=== PATIENT | male | born 1955 | race Caucasian/White ===

== ENCOUNTER → 2017-12-06 07:51 | Outpatient (CLI) | payer OTHER, SELFPAY ==
[2017-12-06 09:29] LABS: AST(SGOT) 17 U/L (15-37); Alanine Aminotransfer ALT/SGPT 29 U/L (16-61); Albumin, Serum 3.9 g/dL (3.2-5.0); Alkaline Phosphatase 69 U/L (45-117); Anion Gap 9 (5-15); BUN 14 mg/dL (7-18); BUN/Creat Ratio 16.2 RATIO (10-20); Calcium,Total 8.9 mg/dL (8.5-10.1); Chloride 103 mmol/L (98-107); Cholesterol 205 mg/dL (200); Creatinine, Serum 0.87 mg/dL (0.70-1.30); EST Glomerular Filtration Rate 95 mL/min (>60); Est Glom Filt Rate - Afr Amer 114 mL/min (>60); Globulin 3.8 g/dL (2.2-4.2); Glucose 87 mg/dL (74-106); High Density Lipoprotein 54 mg/dL; Protein, Total 7.7 g/dL (6.4-8.2); Sodium Level 140 mmol/L (136-145); Triglycerides 90 mg/dL; Very Low Density Lipoprotein 18 mg/dL (5-40)
== END ==
PROVIDERS: Family Provider Family Medicine; PCP Family Medicine; Visit Provider Family Medicine
DX: E78.5 Hyperlipidemia, unspecified (principal)
CPT/HCPCS: 36415; 80053; 80061

== ENCOUNTER → 2018-02-06 10:38 | Outpatient (CLI) | payer OTHER, SELFPAY ==
[2018-02-06 10:47] LABS: Bacteria 0 SEEN /hpf (None Seen); Mucous, Urine 0 SEEN /hpf (<or=2+); Red Blood Cells-Urine 0 SEEN /hpf (0-5); Squamous Epithelial Cells - UA 0 SEEN /hpf (0-5); White Blood Cells 0 SEEN /hpf (0-5)
--- NOTE | 2018-02-06 11:01 | EKG12_ITS ---
Test Reason : CP Blood Pressure : / mmHG Vent. Rate : 070 BPM Atrial Rate : 070 BPM P-R Int : 186 ms QRS Dur : 146 ms QT Int : 438 ms P-R-T Axes : -02 -52 -07 degrees QTc Int : 473 ms Sinus rhythm with occasional Premature ventricular complexes Left axis deviation Right bundle branch block Abnormal ECG Confirmed by TISH VALLES, CHAPO ([id number]), website/blog editor JORDON LIVINGSTON ([id number]) on 02/13/2018 1:09:14 PM Referred By: Marvin Mera Confirmed By:CHAPO WINSTON MD
[2018-02-06 11:29] LABS: Absolute Lymphocyte Count 0.66 X10^3/ul (0.83-4.51); Absolute Neutrophil Count 3.6 X10^3/uL (2.0-7.7); Basophil# 0.01 X10^3/uL; Basophil% 0.2 % (0-1); Eosinophil# 0.05 X10^3/uL; Eosinophils% 1.1 % (0-5); Hematocrit 42.4 % (40-54); Hemoglobin 14.5 g/dl (13.0-16.5); Lymphocyte # 0.66 X10^3/ul (4.0); Mean Corp Hgb Conc 34.2 g/gl (32-36); Mean Corpuscular Volume 87.8 fL (80-94); Mean Platelet Vol. 10.8 fl (6.2-12.0); Monocyte# 0.35 X10^3/uL; Monocyte% 7.4 % (0-10); Neutrophil # 3.63 X10^3/uL (2.7-7.7); Neutrophil % 76.9 % (47-70); Platelet Count 173 K/mm3 (150-450); RBC Distribution Width CV 12.9 % (11.6-14.6); RBC Distribution Width SD 41.1 fl (35.1-43.9); Red Blood Count 4.83 M/mm3 (4.6-6.2); White Blood Count 4.7 K/mm3 (4.4-11.0)
[2018-02-06 11:30] LABS: Color, Urine Yellow (Yellow); Glucose, Dipstick Normal (Normal); Ketone-Dipstick Negative (Negative); Leukocyte Esterase-Dipstick 100 /ul (Negative); Nitrite-Dipstick Negative (Negative); Occult Blood-Urine Negative /ul (Negative); POSITIVE COUNT NO; POSITIVE DIFFERENTIAL NO; POSITIVE MORPHOLOGY NO; Protein-Dipstick Negative (Negative); Urine Bilirubin Dipstick Negative (Negative); Urine Clarity Clear (Clear); Urine Urobilinogen Normal (Normal)
[2018-02-06 12:39] LABS: PSA,Total - Annual Screen 3.11 ng/mL (0.00-4.00)
[2018-02-06 13:21] LABS: Bacteria 0 SEEN /hpf (None Seen); Mucous, Urine 0 SEEN /hpf (<or=2+); Red Blood Cells-Urine 0 SEEN /hpf (0-5); Squamous Epithelial Cells - UA 0 SEEN /hpf (0-5); White Blood Cells 0 SEEN /hpf (0-5)
[2018-02-06 13:25] LABS: Color, Urine Yellow (Yellow); Glucose, Dipstick Normal (Normal); Ketone-Dipstick Negative (Negative); Leukocyte Esterase-Dipstick 25 /ul (Negative); Nitrite-Dipstick Negative (Negative); Occult Blood-Urine Negative /ul (Negative); Protein-Dipstick Negative (Negative); Specific Gravity, Urine 1.015 (1.002-1.030); Urine Bilirubin Dipstick Negative (Negative); Urine Clarity Clear (Clear); Urine Urobilinogen Normal (Normal)
[2018-02-06 13:31] LABS: Amorphous Sediment 1+
== END ==
PROVIDERS: Family Provider Family Medicine; PCP Family Medicine; Referring Provider Nurse Practitioner Family; Visit Provider Nurse Practitioner Family
DX: N40.0 Benign prostatic hyperplasia without lower urinary tract symptoms (principal); R07.9 Chest pain, unspecified; R63.4 Abnormal weight loss; Z12.5 Encounter for screening for malignant neoplasm of prostate
CPT/HCPCS: 36415; 81001; 84153; 85025; 93005; G0103

== ENCOUNTER → 2018-05-10 12:56 | Outpatient (CLI) | payer OTHER, SELFPAY ==
[2018-04-15 13:09] VITALS: BMI 24.7
--- NOTE | 2018-05-10 13:00 | CT_ITS ---
STUDY: CT ABDOMEN AND PELVIS WITH AND WITHOUT CONTRAST REASON FOR EXAM: Male, 63 years old. Hematuria RADIATION DOSAGE (If Supplied By Facility): CTDIvol = ( 13.8 ) mGy, DLP = ( 1842.0 ) mGycm TECHNIQUE: Transaxial images were obtained from the dome of the diaphragm to the symphysis pubis without oral contrast. 100 ml of Isovue 300 contrast was administered. Sagittal and coronal images were reconstructed. Individualized dose optimization techniques were used for this CT. COMPARISON: None. FINDINGS: Mild atelectasis in the lung bases. The visualized portions of the heart are within normal limits. Normal liver. There is a solitary gallstone. Normal spleen. Normal pancreas. Normal bilateral adrenal glands. There are bilateral nephroliths identified on noncontrast imaging, measuring 4.4 mm on the right and 5.1 mm on the left (largest calculi). No ureteral calculi are seen. There is only limited filling of the ureters on delayed imaging but no obvious ureteral mass or obstruction identified. Normal visualized stomach. Normal small intestine. Colonic fecal residue throughout the colon but no colon wall thickening. There is non-visualization of the appendix. There is diffuse atherosclerotic calcification of the abdominal aorta, without a demonstrated aneurysm. Normal inferior vena cava. Normal retroperitoneum. Normal urinary bladder. There is enlargement of the prostate gland. Prostate calcifications are noted. Normal abdominal wall. Mild degenerative changes of the lumbar spine. CT/CT Abd/Pelvis W/WO Contrast IMPRESSION: 1. No solid renal masses. No hydronephrosis or ureter calculi. 2. Nonobstructing bilateral nephrolithiasis. 3. Prostatomegaly with prostate calcifications. 4. Gallstone. 5. Colonic fecal residue. 6. Mild degenerative changes of the lumbosacral spine. Electronically Signed: Luis Eduardo Sewell MD at 9:40 EST , Service support ,
== END ==
PROVIDERS: Family Provider Family Medicine; PCP Family Medicine; Referring Provider Urology; Visit Provider Urology
DX: R31.0 Gross hematuria (principal)
CPT/HCPCS: 74178; Q9967

== ENCOUNTER → 2018-11-02 08:43 | Outpatient (CLI) | payer OTHER, SELFPAY ==
[2018-10-23 16:30] VITALS: BMI 24.7
--- NOTE | 2018-11-02 08:45 | US_ITS ---
STUDY: ABDOMINAL ULTRASOUND - Left UPPER QUADRANT REASON FOR VISIT: Male, 63 years old. Left-sided abdominal pain TECHNIQUE: Ultrasound evaluation of the left upper quadrant was performed with real-time and static polanco-scale imaging. TECHNICAL QUALITY: Adequate. COMPARISON: None. FINDINGS: Spleen: The spleen measures 12.4 x 4.8 x 3.6 cm. There is normal echogenicity of the spleen. No perisplenic fluid collection There is no demonstrated mass lesion. Left Kidney: Normal size of the left kidney. The left kidney measures 10.9 x 4.9 x 4.7 cm. Normal renal cortex. The left cortex measures 1.9 cm. There is no demonstrated renal mass or cyst. There is no left hydronephrosis. There are echogenic shadowing calculi of the left kidney measuring up to 1.5 cm (size may be overestimated on ultrasound) as seen on prior CT of 05/10/2018. US/Spleen IMPRESSION: 1. Normal sonographic appearance of the spleen. 2. Nonobstructing left nephrolithiasis. Electronically Signed: Luis Eduardo Sewell MD at 14:56 EDT , Service support ,
== END ==
PROVIDERS: Family Provider Family Medicine; PCP Family Medicine; Referring Provider Family Medicine; Visit Provider Family Medicine
DX: R10.9 Unspecified abdominal pain (principal)
CPT/HCPCS: 76705

== ENCOUNTER 2018-11-18 15:52 | Outpatient (RCR) | payer OTHER, SELFPAY ==
[2018-10-23 16:30] VITALS: BMI 24.7
--- NOTE | 2018-11-18 17:44 | HP.PTEVAL ---
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 Date of Evaluation: 11/18/18 Physical Therapist: Louise Tripp PT, Cert MDT - Visit Plan Frequency: 1x/Week Duration: 1 Week Plan: D/C DUE TO PATIENT NOT WANTING TO PURSUE THERAPY FOR HIS BACK AT THIS TIME. - Subjective Findings: Work/Leisure: RETIRED MAY 2018. Disability: [employer]IN[employer] D[employer]. Present symptoms: LEFT QUADRANT ABDOMINAL PAIN, LOW BACK PAIN. NO LE PAIN, NUMBNESS OR TINGLING. Present since: ABOUT 5 MONTHS AGO ABDOMINAL PAIN STARTED AND CHRONIC LBP. LOW BACK ALSO SEEMED TO FLARE UP AND NOT EASE UP ABOUT 5 MONTHS. Pain Scale: WORST 6/10, LEAST 0/10 (ABDOMEN). WORST 8/10, LEAST 2/10 (LBP). Currently: 0/10 BUT TENDER. HAS IMPROVED. LBP - 2/10. Commenced as a result of: NO APPARENT REASON (ABDOMEN AND LBP). Symptoms at onset: LEFT ABDOMINAL AREA ABOUT 5 MONTHS AGO AND ALL THE WAY ACROSS THE BACK. Worse: INCREASED PAIN/ACHING IN LEFT ABDOMINAL AREA AFTER EATING. LEANING OVER WORKING ON THE FLOWER BED AND ANYTHING LEANING MAKES BACK PAIN WORSE. Better: JUST TAKES TIME. MAYBE WARM COMPRESS. LYING DOWN EASES LBP. Disturbed sleep: NO. Previous history/Previous treatment: CHIROPRACTOR OFF AND ON FOR YEARS. Coughing/sneezing/straining: NEGATIVE. Gait: UNCHANGED IN LAST 5 MONTHS OR SO. Difficulty initiating urinatin: NO. Accidents: NO. Unexplained weight loss: NO. Imaging: US OF ABDOMEN ABOUT 4 WEEKS AGO - NEGATIVE. PMH: PARKINSON'S DZ DX'D IN JAN 2015. Recent major surgery: NO. PLOF (Prior Level of Function): UNCHANGED. - Objective Sitting/Standing Posture: POOR. INCREASED TRUNK FLEXION, INCREASED KYPHOSIS, FORWARD HEAD AND ROUNDED SHOULDERS. Lordosis: REDUCED. Lateral shift: NO. Relevant shift: N/A. Active Correction of posture: NE. Other Observations: INDEP GAIT INTO PT WITH DECREASED CADANCE, INCREASED TRUNK FLEXION AND DECREASED JAY STRIDE LENGTH BUT NO LOB. Motor deficit: JAY LE STRENGTH GROSSLY 4-5/5 WITH MMT'ING AND TESING DOES NOT INCREASE C/O BACK OR ABDOMINAL PAIN. Sensory deficit: NO. ROM deficit: TIGHT JAY HIP FLEXORS, HS'S AND GASTROC SOLEUS COMPLEX'S. Reflexes: NT. Dural Signs: NEGATIVE. Lumbar mvmt loss: flex - MOD. ext - ALESHA. R SG - ALESHA. L SG - ALESHA. PATIENT DENIES INCREASED PAIN (STRETCHING WITH JAY SB ON IPSILATERAL SIDE ONLY) IN BACK OR ABDOMEN WITH TESTING. Core strength: POOR. Palpation: TENDERNESS WITH PALPATION OF THE LUMBAR SPIINE REGION ONLY. PALPATION OF LUMBAR SPINE DOES NOT PRODUCE ABDOMINAL PAIN. OTHER: NO TESTING TODAY PRODUCED ABDOMINAL PAIN. PATIENT DOES NOT WISH TO HAVE THERAPY FOR HIS LOW BACK AT THIS TIME. HE REPORTS HE HAS BEEN MANAGING HIS LOW BACK PAIN FOR A LONG TIME WITH HIS CHIROPRACTOR AND HAS ONLY HAD A LITTLE BIT OF INCREASE IN PAIN RECENTLY. HIS MAIN CONCERN IS HIS ABDOMINAL PAIN. HE PLANS TO PURSUE THIS FURTHER WITH HIS FAMILY PHYSICIAN AT THIS TIME. - Goals Goal 1:: COMPLETION OF INITIAL EVALUATION Goal Time Frame: ONE TIME CONSULT - Rehabilitation Potential Rehabilitation Potential: Fair - Anticipated Interventions Thank you for the opportunity to evaluate your patient. For Medicare and Medicare HMO plans, please review the plan of care and approve it. It will need to be FAXED BACK to us at [phone] for Medicare purposes. For Medicare only, by signing this I certify the plan of care. Please let me know if there are questions or concerns regarding this plan of care. Physician Signature: Date:
--- NOTE | 2018-11-18 17:45 | HP.PT.NRP ---
HP - Discharge Summary (1) - Patient Information RENNY VALENCIA was seen in my office for initial evaluation on 11/18/18. The following Plan of Care was established for this patient: Initial Frequency: 1x/Week Initial Duration: 1 Week This patient was last seen in our office . Pertinent comments regarding their Physical therapy will appear below: ONE TIME CONSULT At this point I will be discontinuing this patient from physical therapy. I would be happy to see this patient again in the future if found appropriate by the physician. Thank you! Louise Tripp, PT, Cert MDT
== END 2018-11-18 19:00 | disposition home or self-care (01) ==
LOC: PT 15:52
PROVIDERS: Family Provider Family Medicine; PCP Family Medicine; Referring Provider Family Medicine; Visit Provider Family Medicine
DX: M99.03 Segmental and somatic dysfunction of lumbar region (principal)
CPT/HCPCS: 97162

== ENCOUNTER → 2018-12-10 | Outpatient (CLI) | payer OTHER, SELFPAY ==
[2018-12-10 08:59] VITALS: BMI 24.7
[2018-12-10 12:33] LABS: AST(SGOT) 12 U/L (15-37); Alanine Aminotransfer ALT/SGPT 27 U/L (16-61); Albumin, Serum 3.8 g/dL (3.2-5.0); Alkaline Phosphatase 68 U/L (45-117); Anion Gap 6 (5-15); BUN 12 mg/dL (7-18); Chloride 106 mmol/L (98-107); Cholesterol 225 mg/dL (200); Creatinine, Serum 0.92 mg/dL (0.70-1.30); EST Glomerular Filtration Rate 88 mL/min (>60); Est Glom Filt Rate - Afr Amer 106 mL/min (>60); Globulin 3.7 g/dL (2.2-4.2); Glucose 80 mg/dL (74-106); High Density Lipoprotein 59 mg/dL; Potassium 4.3 mmol/L (3.5-5.1); Protein, Total 7.5 g/dL (6.4-8.2); Sodium Level 141 mmol/L (136-145); Triglycerides 82 mg/dL; Very Low Density Lipoprotein 16 mg/dL (5-40)
== END | disposition home or self-care (01) ==
LOC: BIMLAB 09:50
PROVIDERS: Family Provider Family Medicine; PCP Family Medicine; Visit Provider Family Medicine
DX: E78.5 Hyperlipidemia, unspecified (principal)
CPT/HCPCS: 36415; 80053; 80061

== ENCOUNTER → 2019-12-23 | Outpatient (CLI) | payer MEDICARE, BC, SELFPAY ==
[2019-12-23 10:26] VITALS: BMI 24.7
[2019-12-23 12:38] LABS: Absolute Neutrophil Count 3.3 X10^3/uL (2.0-7.7); Basophil# 0.02 X10^3/uL; Basophil% 0.4 % (0-1); Eosinophil# 0.05 X10^3/uL; Eosinophils% 1.1 % (0-5); Hematocrit 41.5 % (40-54); Hemoglobin 14.1 g/dL (13.0-16.5); Lymphocyte % 13.5 % (19-41); Mean Corpuscular Hgb 30.3 pg (27.0-32.0); Mean Corpuscular Volume 89.1 fL (80-94); Mean Platelet Vol. 10.4 fl (6.2-12.0); NRBC Flagged by Analyzer 0 % (0-5); Neutrophil # 3.34 X10^3/uL (2.7-7.7); Neutrophil % 75.1 % (47-70); POSITIVE DIFFERENTIAL YES; Platelet Count 170 K/mm3 (150-450); RBC Distribution Width CV 12.3 % (11.6-14.6); RBC Distribution Width SD 39.7 fl (35.1-43.9); Red Blood Count 4.66 M/mm3 (4.6-6.2); White Blood Count 4.5 K/mm3 (4.4-11.0)
[2019-12-23 12:41] LABS: Anion Gap 3 (5-15); BUN 15 mg/dL (7-18); BUN/Creat Ratio 18.1 RATIO (10-20); Chloride 105 mmol/L (98-107); Creatinine, Serum 0.83 mg/dL (0.70-1.30); EST Glomerular Filtration Rate 99 mL/min (>60); Est Glom Filt Rate - Afr Amer 119 mL/min (>60); Glucose 97 mg/dL (74-106); Sodium Level 139 mmol/L (136-145)
[2019-12-23 13:02] LABS: Differential Indicated SCAN CRITERIA MET
[2019-12-23 13:14] LABS: Differential Comment SCANNED; Pathologist Review May foll
[2019-12-23 18:59] LABS: Xtra Tube EP Lab EXTRA TUBE
== END | disposition home or self-care (01) ==
LOC: BIMLAB 10:54
PROVIDERS: PCP Family Medicine; Visit Provider Family Medicine
DX: G20 Parkinson's disease (principal); Z87.19 Personal history of other diseases of the digestive system
CPT/HCPCS: 36415; 80048; 85025

== ENCOUNTER → 2020-12-28 10:39 | Outpatient (CLI) | payer MEDICARE, BC, SELFPAY ==
[2020-12-28 12:34] LABS: ALB/GLOB Ratio 0.9 RATIO (0.9-2.4); AST(SGOT) 11 U/L (15-37); Alanine Aminotransfer ALT/SGPT 12 U/L (16-61); Albumin, Serum 3.7 g/dL (3.2-5.0); Alkaline Phosphatase 69 U/L (45-117); Anion Gap 1 (5-15); BUN 11 mg/dL (7-18); BUN/Creat Ratio 13.3 RATIO (10-20); Calcium,Total 9.2 mg/dL (8.5-10.1); Chloride 104 mmol/L (98-107); Creatinine, Serum 0.83 mg/dL (0.70-1.30); EST Glomerular Filtration Rate 99 mL/min (>60); Est Glom Filt Rate - Afr Amer 119 mL/min (>60); Globulin 3.9 g/dL (2.2-4.2); Glucose 91 mg/dL (74-106); Potassium 4.5 mmol/L (3.5-5.1); Protein, Total 7.6 g/dL (6.4-8.2); Sodium Level 139 mmol/L (136-145)
[2020-12-29 08:54] LABS: LDL, Direct 120295 131 mg/dL (0-99)
== END ==
PROVIDERS: PCP Family Medicine; Referring Provider Family Medicine; Visit Provider Family Medicine
DX: G20 Parkinson's disease (principal); E78.5 Hyperlipidemia, unspecified; N40.0 Benign prostatic hyperplasia without lower urinary tract symptoms
CPT/HCPCS: 36415; 80053; 83721; 84153

== ENCOUNTER → 2021-12-27 | Outpatient (CLI) | payer MEDICARE, BC, SELFPAY ==
[2021-12-27 12:27] LABS: AST(SGOT) 10 U/L (15-37); Alanine Aminotransfer ALT/SGPT 12 U/L (16-61); Albumin, Serum 3.8 g/dL (3.2-5.0); Alkaline Phosphatase 67 U/L (45-117); Anion Gap 5 (5-15); BUN 15 mg/dL (7-18); BUN/Creat Ratio 15.7 RATIO (10-20); Calcium,Total 9.6 mg/dL (8.5-10.1); Chloride 104 mmol/L (98-107); Cholesterol 225 mg/dL (200); Creatinine, Serum 0.96 mg/dL (0.70-1.30); EST Glomerular Filtration Rate 83 mL/min (>60); Est Glom Filt Rate - Afr Amer 101 mL/min (>60); Globulin 3.9 g/dL (2.2-4.2); Glucose 106 mg/dL (74-106); High Density Lipoprotein 61 mg/dL; Potassium 4.2 mmol/L (3.5-5.1); Protein, Total 7.7 g/dL (6.4-8.2); Sodium Level 139 mmol/L (136-145); Triglycerides 92 mg/dL; Very Low Density Lipoprotein 18 mg/dL (5-40)
== END | disposition home or self-care (01) ==
LOC: BIMLAB 10:21
PROVIDERS: PCP Family Medicine; Visit Provider Family Medicine
DX: G20 Parkinson's disease (principal); E78.5 Hyperlipidemia, unspecified
CPT/HCPCS: 36415; 80053; 80061

== ENCOUNTER → 2022-12-13 | Outpatient (CLI) | payer MEDICARE, BC, SELFPAY ==
[2022-12-13 12:29] LABS: Absolute Lymphocyte Count 0.67 X10^3/uL (0.83-4.51); Absolute Neutrophil Count 3.3 X10^3/uL (2.0-7.7); Basophil# 0.04 X10^3/uL; Basophil% 0.9 % (0-1); Eosinophil# 0.11 X10^3/uL; Eosinophils% 2.4 % (0-5); Hematocrit 36.9 % (40-54); Hemoglobin 12.1 g/dL (13.0-16.5); Lymphocyte # 0.67 X10^3/ul (0.83-4.51); Lymphocyte % 14.7 % (19-41); Mean Corp Hgb Conc 32.8 g/dL (32-36); Mean Corpuscular Hgb 29.1 pg (27.0-32.0); Mean Corpuscular Volume 88.7 fL (80-94); Mean Platelet Vol. 10.6 fl (6.2-12.0); Monocyte# 0.35 X10^3/uL; Monocyte% 7.7 % (0-10); NRBC Flagged by Analyzer 0 % (0-5); Neutrophil # 3.26 X10^3/uL (2.7-7.7); Neutrophil % 71.7 % (47-70); Platelet Count 230 K/mm3 (150-450); RBC Distribution Width CV 12.7 % (11.6-14.6); RBC Distribution Width SD 41.1 fl (35.1-43.9); Red Blood Count 4.16 M/mm3 (4.6-6.2); White Blood Count 4.6 K/mm3 (4.4-11.0)
[2022-12-13 12:53] LABS: ALB/GLOB Ratio 0.8 RATIO (0.9-2.4); AST(SGOT) 14 U/L (15-37); Alanine Aminotransfer ALT/SGPT 9 U/L (16-61); Albumin, Serum 3.3 g/dL (3.2-5.0); Alkaline Phosphatase 98 U/L (45-117); Amylase 40 U/L (25-115); Anion Gap 5 (5-15); BUN 27 mg/dL (7-18); Calcium,Total 8.7 mg/dL (8.5-10.1); Chloride 105 mmol/L (98-107); Cholesterol 201 mg/dL (200); Creatinine, Serum 1.42 mg/dL (0.70-1.30); EST Glomerular Filtration Rate 53 mL/min (>60); Est Glom Filt Rate - Afr Amer 64 mL/min (>60); Glucose 111 mg/dL (74-106); High Density Lipoprotein 42 mg/dL; Lipase 39 U/L (13-75); PSA,Total- Diagnostic 2.74 ng/mL (0.0-4.0); Protein, Total 7.3 g/dL (6.4-8.2); Sodium Level 138 mmol/L (136-145); Triglycerides 106 mg/dL; Very Low Density Lipoprotein 21 mg/dL (5-40)
== END | disposition home or self-care (01) ==
LOC: BIMLAB 09:23
PROVIDERS: PCP Family Medicine; Visit Provider Family Medicine
DX: R10.9 Unspecified abdominal pain (principal); E78.5 Hyperlipidemia, unspecified; N40.0 Benign prostatic hyperplasia without lower urinary tract symptoms; N41.0 Acute prostatitis
CPT/HCPCS: 36415; 80053; 80061; 82150; 83690; 84153; 85025

== ENCOUNTER 2023-02-20 07:37 | Day surgery (SDC) | payer MEDICARE, BC, SELFPAY ==
[2023-02-20 07:56] VITALS: BP 156/99; PULSE 80; RESP 16; TEMP 36.4; O2SAT 98; BMI 23.1
[2023-02-20] MEDS: Lactated Ringers 1,000 ML 15 ML IV (08:08)
--- NOTE | 2023-02-20 08:56 | PCM.HP.BLA ---
History and Physical Date of Admission: 02/20/23 Intake Vital Signs 12/14/2307:37 01/17/2314:55 Height 5 ft 11 in Weight: 170 lb 172 lb BMI 23.7 BP 116/74 130/66 H Blood Pressure Location Rt brachial Rt brachial Position Sitting Sitting Respiration 18 17 Pulse 59 L 52 L Pulse Source Monitor Monitor Temp 97.0 F L Temp Source Temporal Pulse Oximetry (%) 98 97 Oxygen Delivery Method room air room air Intake Visit Reasons: POSITIVE COLOGUARD Chief Complaint: positive cologuard Is patient in pain?: No Allergies sulfamethoxazole [From Bactrim] Allergy (Mild, Verified 01/17/23 14:56) Rashtrimethoprim [From Bactrim] Allergy (Mild, Verified 01/17/23 14:56) RashPenicillins Allergy (Verified 01/17/23 14:56) Rash Medications finasteride 5 mg tablet 5 mg PO DAILY 02/26/17 [History Confirmed 01/17/23] ascorbate calcium (vitamin C) 500 mg tablet 500 mg PO DAILY 12/23/19 [History Confirmed 01/17/23] cholecalciferol (vitamin D3) 25 mcg (1,000 unit) capsule 25 mcg PO DAILY 12/23/19 [History Confirmed 01/17/23] zinc 50 mg tablet 50 mg PO DAILY 12/28/20 [History Confirmed 01/17/23] duloxetine 60 mg capsule,delayed release See Rx Instructions .Route .COMPLEX #90 caps 12/27/21 [Rx Confirmed 01/17/23] carbidopa 25 mg-levodopa 100 mg tablet 2 tab PO TID 05/03/22 [History Confirmed 01/17/23] duloxetine 30 mg capsule,delayed release 30 mg PO DAILY 06/14/22 [History Confirmed 01/17/23] handicap placard #1 ea 12/22/22 [Rx Confirmed 01/17/23] [facility], [facility] Medical History History of hemorrhoids Hyperlipemia Kidney stones Parkinson disease Surgical History History of hernia repair History of prostate surgery Hx of lithotripsy Social History Smoking Status: Former smoker alcohol intake: never substance use type: does not use what type of physical activity do you participate in: bicycling frequency: daily HPI HPI HPI: Patient is a 67-year-old male here with positive Cologuard. Patient denies abdominal pain but he does say that he has blood in his stool daily and he attributes this to a bleeding hemorrhoid. He says his last colonoscopy was at least 5 years ago. He denies family history of colon cancer. ROS General General: Yes weight change and fatigue; No appetite, colon cancer, breast cancer or weakness HEENT HEENT: No difficulty swallowing, eye injury, eye surgery, swollen glands or hoarseness Endo Endocrine: No thyroid disease, diabetes mellitus, thyroid cancer, Hair loss, heat intolerance or cold intolerance Skin Skin: No rash or changing moles Musc Musculoskeletal: No back problems, arthritis, rheumatoid arthritis, gout or joint pain Cardio Cardiovascular: No murmur, pacemaker, heart disease, atrial fibrillation, high blood pressure, heart attack, heart stent, palpitations, shortness of breat with exertion or chest pain Psych Psychiatric: Yes depression and anxiety; No hearing voices Resp Respiratory: No shortness of breath, No sleep apnea, No cough, No COPD, No asthma, No emphysema and No wheezing Gastro Gastrointestinal: Yes abdominal pain, Yes nausea or vomiting, No diarrhea, Yes constipation, Yes blood in stool, No acid reflux, Yes hemorrhoids, No ulcers, No gallbladder problem and Yes black,tarry stools Praveen Hematologic: No blood thinners, No blood disorders, No bleeding, No anemia and No blood clots Neuro Neurologic: No system reviewed and no additional complaints, except as documented, No as per HPI, No abnormal gait, No abnormal hearing, No abnormal movements, No abnormal speech, No behavioral changes, No burning sensations, No confusion, No convulsions, No disequilibrium, No dizziness, No localized weakness, No frequent falls, No headache(s), No lack of coordination, No loss of vision, No memory loss, No numbness, No other visual disturbances, No radicular pain, No restless legs, No sensory deficit, No syncope, No tingling, No tremor(s), No weakness and No other Exam Const General: cooperative Orientation: alert and oriented x3 HENMT Head: normal to inspection Neck Neck: normal visual inspection and full ROM Chest Chest palpation & inspection: normal inspection of the chest Resp Effort & Inspection: normal respiratory effort Auscultation: clear to auscultation bilaterally Cardio Rate: regular rate Rhythm: regular rhythm GI Inspection: non-distended Palpation: soft and nontender Skin General: no rashes or lesions noted Neuro General: patient alert and patient oriented x3 Extrem General: full ROM Psych Appearance: grossly normal Mental Status: mental status grossly normal Assessment and Plan Assessment and Plan (1) Positive colorectal cancer screening using Cologuard test: Status: Acute Plan: I explained endoscopy in detail to the patient. I explained the risks including but not limited to stroke or heart attack with anesthesia, perforation of the GI tract, bleeding, infection. I explained that any of these could necessitate further emergency surgery. The patient understands and all questions were answered sufficiently. The patient wishes to proceed with procedure. Facundo Padron MD Pager: [facility] [address] [place] [address], [address] [place] [address] Office: I have examined the patient and the H&P has been reviewed. There are no clinical changes since date of exam.
[2023-02-20 09:40] VITALS: BP 110/78; BP 156/99; PULSE 63; RESP 18; TEMP 36.2; O2SAT 98
--- NOTE | 2023-02-20 09:41 | OP.COLON_ITS ---
Patient Name: Jack Andrade Procedure Date: 02/20/2023 9:02 AM Date of : 1955 Age: 67 Procedure: Colonoscopy Indications: Positive Cologuard test Providers: Facundo Padron MD Medicines: Monitored Anesthesia Care Patient Profile: This is a 67 year old male. Refer to note in patient chart for documentation of history and physical. Last Colonoscopy: 5 years ago. Complications: No immediate complications. Procedure: Pre-Anesthesia Assessment: - Prior to the procedure, a History and Physical was performed, and patient medications and allergies were reviewed. The patient's tolerance of previous anesthesia was also reviewed. The risks and benefits of the procedure and the sedation options and risks were discussed with the patient. All questions were answered, and informed consent was obtained. Prior Anticoagulants: The patient has taken no anticoagulant or antiplatelet agents. After reviewing the risks and benefits, the patient was deemed in satisfactory condition to undergo the procedure. After I obtained informed consent, the scope was passed under direct vision. Throughout the procedure, the patient's blood pressure, pulse, and oxygen saturations were monitored continuously. The colonoscope was introduced through the anus and advanced to the terminal ileum, with identification of the appendiceal orifice and IC valve. The colonoscopy was performed without difficulty. The patient tolerated the procedure well. The quality of the bowel preparation was good. The ileocecal valve, appendiceal orifice, and rectum were photographed. Scope In: 9:10:21 AM Scope Withdrawal Time 0 hours 8 minutes 18 seconds Scope Out: 9:33:49 AM Total Procedure Duration Time 0 hours 23 minutes 28 seconds Findings: The entire examined colon appeared normal on direct and retroflexion views. Impression: - The entire examined colon is normal on direct and retroflexion views. - No specimens collected. Recommendation: - Discharge patient to home. - Resume previous diet. - Continue present medications. - Repeat colonoscopy is not recommended due to current age (66 years or older) for screening purposes. Procedure Code(s): --- Professional --- 30476, Colonoscopy, flexible; diagnostic, including collection of specimen(s) by brushing or washing, when performed (separate procedure) Diagnosis Code(s): --- Professional --- R19.5, Other fecal abnormalities CPT copyright 2021 [employer]. All rights reserved. The codes documented in this report are preliminary and upon grain mill products inspector review may be revised to meet current compliance requirements. Facundo Padron MD 02/20/2023 9:41:10 AM This report has been signed electronically. Number of Addenda: 0 Note Initiated On: 02/20/2023 9:02 AM
--- NOTE | 2023-02-20 09:41 | OP.CCLET_ITS ---
02/20/2023 Jorgito Francisco Re : Colonoscopy procedure for Jack Andrade Dear Dr. Francisco This procedure was performed on Monday, February 20, 2023. My impressions and recommendations are as follows: Impressions : - The entire examined colon is normal on direct and retroflexion views. - No specimens collected. Recommendations : - Discharge patient to home. - Resume previous diet. - Continue present medications. - Repeat colonoscopy is not recommended due to current age (66 years or older) for screening purposes. My findings are described in the full procedure note, which is enclosed. If I can be of further assistance, please feel free to contact me at Doctor phone number(s): , Work: . Sincerely, Facundo Padron MD 02/20/2023 9:41:10 AM This report has been signed electronically.
[2023-02-20 09:45] VITALS: BP 114/78; BP 156/99; PULSE 63; RESP 18; O2SAT 94
[2023-02-20 09:50] VITALS: BP 122/90; BP 156/99; PULSE 62; RESP 18; O2SAT 97
[2023-02-20 09:55] VITALS: BP 138/87; BP 156/99; PULSE 68; RESP 18; TEMP 36.5; O2SAT 100
[2023-02-20 10:10] VITALS: BP 156/99
== END 2023-02-20 10:55 | disposition home or self-care (01) ==
LOC: EN 07:39 → AC 07:41
PROVIDERS: PCP Family Medicine; Referring Provider Family Medicine; Visit Provider Surgery
PROC: 0DJD8ZZ Inspection of Lower Intestinal Tract, Via Natural or Artificial Opening Endoscopic (ICD-10-PCS; CPT 45378; principal; 2023-02-20 08:25)
DX: R19.5 Other fecal abnormalities (principal); Z87.891 Personal history of nicotine dependence; E78.00 Pure hypercholesterolemia, unspecified; Z87.19 Personal history of other diseases of the digestive system
CPT/HCPCS: 45378; J7120; J2405

== ENCOUNTER → 2024-01-08 | Outpatient (CLI) | payer MEDICARE, BC, SELFPAY ==
[2024-01-08 18:26] LABS: ALB/GLOB Ratio 1.1 RATIO (0.9-2.4); AST(SGOT) 9 U/L (15-37); Alanine Aminotransfer ALT/SGPT < 6 U/L (16-61); Albumin, Serum 3.8 g/dL (3.2-5.0); Alkaline Phosphatase 69 U/L (45-117); Anion Gap 5 (5-15); BUN 20 mg/dL (7-18); BUN/Creat Ratio 14.6 RATIO (10-20); Calcium,Total 9.1 mg/dL (8.5-10.1); Chloride 105 mmol/L (98-107); Cholesterol 227 mg/dL (200); Creatinine, Serum 1.37 mg/dL (0.70-1.30); EST Glomerular Filtration Rate 55 mL/min (>60); Est Glom Filt Rate - Afr Amer 66 mL/min (>60); Globulin 3.6 g/dL (2.2-4.2); Glucose 85 mg/dL (74-106); High Density Lipoprotein 65 mg/dL; Potassium 3.8 mmol/L (3.5-5.1); Protein, Total 7.4 g/dL (6.4-8.2); Sodium Level 139 mmol/L (136-145); Triglycerides 121 mg/dL; Very Low Density Lipoprotein 24 mg/dL (5-40)
== END | disposition home or self-care (01) ==
LOC: LAB 16:54
PROVIDERS: PCP Family Medicine; Referring Provider Family Medicine; Visit Provider Family Medicine
DX: G20.A1 Parkinson's disease without dyskinesia, without mention of fluctuations (principal); E78.5 Hyperlipidemia, unspecified
CPT/HCPCS: 36415; 80053; 80061

== ENCOUNTER → 2024-05-02 | Outpatient (CLI) | payer MEDICARE, BC, SELFPAY | END | disposition home or self-care (01) | LOC: LABSPEC 14:27 | PROVIDERS: PCP Family Medicine; Referring Provider Family Medicine; Visit Provider Family Medicine | DX: N39.0 Urinary tract infection, site not specified (principal); H26.9 Unspecified cataract | CPT/HCPCS: 87086 ==

== ENCOUNTER → 2024-05-21 | Outpatient (CLI) | payer MEDICARE, BC, SELFPAY | END | disposition home or self-care (01) | LOC: CVS 09:16 | PROVIDERS: PCP Family Medicine; Referring Provider Family Medicine; Visit Provider Family Medicine | DX: R07.9 Chest pain, unspecified (principal); G20.B2 Parkinson's disease with dyskinesia, with fluctuations | CPT/HCPCS: A4216 ==

== ENCOUNTER → 2024-07-17 | Outpatient (CLI) | payer MEDICARE, BC, SELFPAY | END | disposition home or self-care (01) | PROVIDERS: PCP Family Medicine; Referring Provider Physician Assistant Surgical; Visit Provider Physician Assistant Surgical | DX: R82.90 Unspecified abnormal findings in urine (principal) | CPT/HCPCS: 87086 ==

== ENCOUNTER → 2025-03-24 | Outpatient (CLI) | payer MEDICARE, BC, SELFPAY ==
[2025-03-24 11:42] LABS: Mucous, Urine 0 SEEN /hpf (<or=2+); Red Blood Cells-Urine 0 SEEN /hpf (0-5); Squamous Epithelial Cells - UA 0 SEEN /hpf (0-5)
[2025-03-24 12:15] LABS: Glucose, Dipstick Normal (Normal); Ketone-Dipstick 5 mg/dl (Negative); Leukocyte Esterase-Dipstick Negative /ul (Negative); Nitrite-Dipstick Negative (Negative); Occult Blood-Urine 25 /ul (Negative); Protein-Dipstick 30 mg/dl (Negative); Specific Gravity, Urine 1.025 (1.002-1.030); Urine Bilirubin Dipstick Negative (Negative)
[2025-03-24 12:28] LABS: Color, Urine Yellow (Yellow)
[2025-03-24 12:53] LABS: Cholesterol 231 mg/dL (<=200); Low Density Lipoprotein Calc. 145 mg/dL; Triglycerides 120 mg/dL; Very Low Density Lipoprotein 24 mg/dL (5-40); cholesterol:hdl ratio screen 3.59
[2025-03-24 12:55] LABS: AST(SGOT) 16 U/L (<=37); Alanine Aminotransfer ALT/SGPT < 5 U/L (<=46); Albumin, Serum 4.3 g/dL (3.4-4.8); Alkaline Phosphatase 72 U/L (40-129); Anion Gap 10 (5-15); BUN 18 mg/dL (4-19); BUN/Creat Ratio 17.5 RATIO (10-20); Calcium,Total 9.3 mg/dL (7.6-11.0); Carbon Dioxide 25.5 mmol/L (21.0-32.0); Chloride 103 mmol/L (98-108); Globulin 2.8 g/dL (2.2-4.2); Glucose 105 mg/dL (70-99); Potassium 4.2 mmol/L (3.3-5.1)
== END | disposition home or self-care (01) ==
LOC: LAB 11:35
PROVIDERS: PCP Family Medicine; Referring Provider Internal Medicine; Visit Provider Internal Medicine
DX: E78.5 Hyperlipidemia, unspecified (principal); R39.9 Unspecified symptoms and signs involving the genitourinary system
CPT/HCPCS: 36415; 80053; 80061; 81001; 87086